=== PATIENT | male | born 1995 | race Caucasian/White ===

== ENCOUNTER 2019-11-15 12:36 | Day surgery (SDC) | payer OTHER ==
[~2019-11-15] VITALS: Ht 175.3 cm; Wt 72.6 kg
[2019-11-15] MEDS ORDERED: FENTANYL PF 250 MCG/5ML ONE (13:24)
[2019-11-15] MEDS ORDERED: MIDAZOLAM 1 MG/ML, 2ML ONE (13:24)
[2019-11-15 13:28] VITALS: BP 116/81
[2019-11-15] MEDS ORDERED: LACTATED RINGERS 1,000 ML IV SCH (14:12)
[2019-11-15] MEDS ORDERED: ROPIvacaine/PF 0.5%, 30 ML ONE (14:20)
[2019-11-15] MEDS ORDERED: LIDOCAINE 1%-EPI 1:100K, 20ML ONE (14:21)
[2019-11-15] MEDS ORDERED: ROCURONIUM 10 MG/ML,10ML ONE (15:15)
[2019-11-15] MEDS ORDERED: DEXAMETHASONE 4 MG/ML, 1ML ONE (15:15)
[2019-11-15] MEDS ORDERED: PROPOFOL 10 MG/ML, 20ML ONE (15:15)
[2019-11-15] MEDS ORDERED: CEFAZOLIN 1,000 MG ONE (15:15)
[2019-11-15] MEDS ORDERED: ONDANSETRON 2MG/ML, 2ML ONE (15:15)
[2019-11-15] MEDS ORDERED: SUCCINYLCHOLINE 20 MG/ML, 10ML ONE (15:15)
[2019-11-15] MEDS ORDERED: KETOROLAC 30 MG/1 ML IV PRN (16:00)
[2019-11-15] MEDS ORDERED: hydrALAzine 20 MG/ML, 1ML IV PRN (16:00)
[2019-11-15] MEDS ORDERED: ONDANSETRON 2MG/ML, 2ML IVPush PRN (16:00)
[2019-11-15] MEDS ORDERED: METOCLOPRAMIDE 5 MG/ML, 2ML IV PRN (16:00)
[2019-11-15] MEDS ORDERED: LABETALOL 5MG/ML, 20ML IV PRN (16:00)
[2019-11-15] MEDS ORDERED: PROMETHAZINE 25 MG/ML, 1ML IV PRN (16:00)
[2019-11-15] MEDS ORDERED: FENTANYL PF 100 MCG/2ML IV PRN (16:00)
[2019-11-15] MEDS ORDERED: HYDROmorphone 1 MG/ML, 1ML INJ IV PRN (16:00)
[2019-11-15] MEDS ORDERED: MEPERIDINE/PF 25MG/0.5ML IVPush PRN (16:00)
[2019-11-15] MEDS ORDERED: ALBUTEROL SULFATE 2.5 MG/3 ML NPPB PRN (16:00)
[2019-11-15] MEDS ORDERED: OXYcodone 5 MG/5 ML ORAL.SOL UDC PO PRN (16:00)
[2019-11-15] MEDS ORDERED: FENTANYL PF 100 MCG/2ML ONE (16:01)
== END 2019-11-15 17:30 | disposition home or self-care (01) ==
LOC: OUT 12:36
PROVIDERS: ATTEND Orthopaedic Surgery
DX: S83.241A Other tear of medial meniscus, current injury, right knee, initial encounter (principal); M65.861 Other synovitis and tenosynovitis, right lower leg; Z79.891 Long term (current) use of opiate analgesic; Z79.899 Other long term (current) drug therapy; Z88.2 Allergy status to sulfonamides; X58.XXXA Exposure to other specified factors, initial encounter; Y93.89 Activity, other specified; Y92.89 Other specified places as the place of occurrence of the external cause; Y99.8 Other external cause status
CPT/HCPCS: 29881; J0330; J0690; J1100; J2250; J2405; J2704; J2795; J3010; J3490; J7120